=== PATIENT | male | born 1965 | race Caucasian/White ===

== ENCOUNTER 2018-06-24 22:42 | Emergency (ER) | payer OTHER, MEDICARE ==
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
[2018-06-24 22:56] VITALS: BP 169/80
[2018-06-24] MEDS ORDERED: oxyCODONE 5 MG TABLET PO STA ×2 (23:18)
[2018-06-24] MEDS ORDERED: diazePAM 5 MG TABLET PO STA (23:18)
[2018-06-24] MEDS ORDERED: DEXAMETHASONE 10 MG/ML VIAL PO STA (23:18)
== END 2018-06-24 23:45 | disposition home or self-care (01) ==
LOC: ED 22:42
DX: Z04.1 Encounter for examination and observation following transport accident (principal); M54.32 Sciatica, left side; M54.16 Radiculopathy, lumbar region; I10 Essential (primary) hypertension
CPT/HCPCS: 99283; A9270

== ENCOUNTER 2018-10-05 09:21 | Outpatient (CLI) | payer OTHER ==
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
== END 2018-10-05 09:22 | disposition home or self-care (01) ==
LOC: DI 09:21
PROVIDERS: ATTEND Physician Assistant Medical
DX: M47.9 Spondylosis, unspecified (principal)
CPT/HCPCS: 70540

== ENCOUNTER 2020-07-14 09:27 | Outpatient (CLI) | payer MEDICARE ==
--- NOTE | 2020-07-14 11:17 | XRAY Report ---
PROCEDURE: Chest 2 View X-Ray INDICATIONS: Hypertension; nicotine dependence TECHNIQUE: 2 view(s) of the chest. COMPARISON: None. FINDINGS: Surgical changes and devices: None. Lungs and pleura: No pleural effusions or pneumothorax. Lungs are clear. Mediastinum: Mediastinal contours are normal. Heart size is normal. Bones and chest wall: No suspicious bony abnormalities. Soft tissues appear unremarkable. IMPRESSION: No acute finding. Reviewed by: Min Ferreira MD on 07/14/2020 11:15 AM PDT Approved by: Min Ferreira MD on 07/14/2020 11:15 AM PDT Station ID: [id number]
== END 2020-07-14 09:28 | disposition home or self-care (01) ==
LOC: DI 09:27
PROVIDERS: ATTEND Internal Medicine
DX: I10 Essential (primary) hypertension (principal); F17.200 Nicotine dependence, unspecified, uncomplicated
CPT/HCPCS: 71046

== ENCOUNTER 2020-12-04 09:16 | Outpatient (CLI) | payer MEDICARE ==
--- NOTE | 2020-12-04 12:39 | XRAY Report ---
PROCEDURE: Shoulder 3 View LT INDICATIONS: PAIN IN LT SHOULDER TECHNIQUE: 4 views of the shoulder were acquired. COMPARISON: None. FINDINGS: Bones: No fractures or dislocations. There is moderate acromioclavicular joint degeneration. No bassam picious bony lesions. Visualized ribs appear intact. Soft tissues: No suspicious soft tissue calcifications. IMPRESSION: 1. Moderate acromioclavicular joint degeneration. 2. No acute fracture or dislocation. Reviewed by: Lloyd Casillas MD on 12/04/2020 12:38 PM PDT Approved by: Lloyd Casillas MD on 12/04/2020 12:38 PM PDT Station ID: [id number]
== END 2020-12-04 09:17 | disposition home or self-care (01) ==
LOC: DI 09:16
PROVIDERS: ATTEND Internal Medicine
DX: M25.512 Pain in left shoulder (principal); M19.012 Primary osteoarthritis, left shoulder

== ENCOUNTER 2022-02-04 10:04 | Outpatient (CLI) | payer MEDICARE ==
--- NOTE | 2022-02-04 14:03 | XRAY Report ---
PROCEDURE: Sinus Complete INDICATIONS: ALLERGIC RHINITIS TECHNIQUE: 5 views of the sinuses were acquired. COMPARISON: None FINDINGS: Sinuses: There is opacity involving the majority of the right maxillary sinus. The appearance suggest s a possible large mucous retention cyst. The left maxillary sinus is clear. The visualized mastoids also appear clear. Bones: No suspicious bony lesions. Nasal septum is midline. IMPRESSION: Suspect large right maxillary sinus mucus retention cyst. Consider sinus CT. Reviewed by: Julian Burroughs MD on 02/04/2022 2:02 PM PDT Approved by: Julian Burroughs MD on 02/04/2022 2:02 PM PDT Station ID: [id number]
--- NOTE | 2022-02-04 14:35 | XRAY Report ---
PROCEDURE: Chest 2 View X-Ray INDICATIONS: ACUTE BRONCHITIS TECHNIQUE: 2 view(s) of the chest. COMPARISON: Chest x-ray 07/14/2020 FINDINGS: Surgical changes and devices: None. Lungs and pleura: No pleural effusions or pneumothorax. Mild appearance of bibasilar coarsening. Mediastinum: Mediastinal contours are normal. Heart size is normal. Bones and chest wall: No suspicious bony abnormalities. Soft tissues appear unremarkable. IMPRESSION: Mild bibasilar coarsening, overall nonspecific. This could represent atelectasis versus developing pneumonia. Reviewed by: Judith Vega MD on 02/04/2022 2:34 PM PDT Approved by: Judith Vega MD on 02/04/2022 2:34 PM PDT Station ID: [id number]
== END 2022-02-04 10:05 | disposition home or self-care (01) ==
LOC: DI.N 10:04
PROVIDERS: ATTEND Internal Medicine
DX: J20.9 Acute bronchitis, unspecified (principal); J30.9 Allergic rhinitis, unspecified; R91.8 Other nonspecific abnormal finding of lung field; R93.89 Abnormal findings on diagnostic imaging of other specified body structures

== ENCOUNTER 2022-02-17 07:48 | Outpatient (CLI) | payer MEDICARE ==
--- NOTE | 2022-02-17 09:56 | CT Report ---
PROCEDURE: Sinuses INDICATIONS: CYST OF NASAL SINUS TECHNIQUE: Noncontrast 3.0 mm axial images acquired from the frontal sinuses to the mid-sella, with coronal and sagittal reformats. For radiation dose reduction, the following was used: automated exposure control , adjustment of mA and/or kV according to patient size. COMPARISON: None. FINDINGS: Image quality: Excellent. Large mucous retention cyst versus polyp noted in the right maxillary sinus. No air-fluid levels are identified. The ostiomeatal units are patent bilaterally. Nasal septum is deviated to the right. No c oncha bullosa or paradoxical turbinates. No osseous thickening, osseous remodeling or osseous erosion s. IMPRESSION: Large right maxillary sinus mucous retention cyst versus polyp. Reviewed by: Lianna Srivastava MD, PhD on 02/17/2022 9:54 AM PDT Approved by: Lianna Srivastava MD, PhD on 02/17/2022 9:54 AM PDT Station ID: [id number]
== END 2022-02-17 07:49 | disposition home or self-care (01) ==
LOC: DI 07:48
PROVIDERS: ATTEND Internal Medicine
DX: J34.1 Cyst and mucocele of nose and nasal sinus (principal)

== ENCOUNTER 2022-05-13 10:29 | Outpatient (CLI) | payer MEDICARE ==
--- NOTE | 2022-05-13 17:22 | XRAY Report ---
PROCEDURE: Shoulder 3 View LT INDICATIONS: LT SHOULDER PAIN TECHNIQUE: 3 views of the shoulder were acquired. COMPARISON: None FINDINGS: Bones: No fractures or dislocations. No suspicious bony lesions. Visualized ribs appear intact. Soft tissues: No suspicious soft tissue calcifications. IMPRESSION: Unremarkable left shoulder radiographs Reviewed by: Brian Hernandez MD on 05/13/2022 4:21 PM AKDT Approved by: Brian Hernandez MD on 05/13/2022 4:21 PM AKDT Station ID: [id number]
== END 2022-05-13 10:30 | disposition home or self-care (01) ==
LOC: DI 10:29
PROVIDERS: ATTEND Internal Medicine
DX: M25.512 Pain in left shoulder (principal)